=== PATIENT | female | born 1955 | race Caucasian/White ===

== ENCOUNTER 2016-06-29 19:07 | Inpatient (IN) | payer OTHER ==
--- NOTE | ~2016-06-29 | DS ---
Discharge Summary [address] [place]. [address] NAME: MICHAEL MUNOZ : 51 STATUS : DIS IN PAT#: [id number] AGE: 60 ADM/REG DATE : 06/29/16 MR#: [id number] REPORT SERV DATE: 07/03/16 DICTATED BY: RAFA PINK DATE: 07/02/16 REPORT STATUS : Draft TRANSCRIBED BY: MODL DATE: 07/02/16 ADMISSION DATE: 06/29/2016 DISCHARGE DATE: 07/02/2016 DISCHARGE DIAGNOSES: 1. Right-sided community-acquired pneumonia. 2. Hyponatremia, present on admission, improving. 3. Hypertension. 4. Hypovolemia, present on admission, improved. CONSULTANTS: Timothy Kenyon M.D., F.A.C.C. of Cardiology. PROCEDURES: None. HOSPITAL COURSE: This is a 60-year-old lady who was admitted to the hospital with right- sided community-acquired pneumonia as well as hyponatremia and hypovolemia. For details please refer to H and P by Dr. Oscar Joseph. In summary, the patient was admitted and was empirically treated with IV antibiotics. As the patient had developed the hyponatremia after recent medication changes namely hydrochlorothiazide by Dr. Kenyon's office, he was involved in the care. The patient's hyponatremia improved with IV fluids. The patient's hypovolemia also improved with IV fluids. Throughout the entire hospital stay, the patient remained afebrile and hemodynamically stable. The patient's white blood cell count was as high as 19.2 but improved to 10.6 on the day of discharge. Also notably throughout the entire hospital stay, the patient really never required any oxygen support to maintain adequate oxygen saturations. The patient's main complaint throughout the hospital stay was persistent cough which was treated symptomatically. The patient is now being discharged home with close outpatient followup instructions. DISPOSITION: Home. DISCHARGE MEDICATIONS: 1. Levaquin for another 5 days. 2. Phenergan with codeine as well as Broadbent for another week for symptomatic control of the cough. 3. Chlorthalidone was discontinued due to the hyponatremia. No new antihypertensive was added as the patient's blood pressure has been adequate here during the hospital stay. Further titration per primary care physician. FOLLOWUP INSTRUCTIONS: 1. Please follow up with PCP in the next one to two weeks. 2. Please follow up with Dr. Kenyon in the next two to three weeks. Discharge Summary [address] [place]. [address] NAME: MICHAEL MUNOZ : 51 STATUS : DIS IN PAT#: [id number] AGE: 60 ADM/REG DATE : 06/29/16 MR#: [id number] REPORT SERV DATE: 07/03/16 DICTATED BY: RAFA PINK DATE: 07/02/16 REPORT STATUS : Draft TRANSCRIBED BY: CARLOS DATE: 07/02/16 [facility]/CARLOS Rafa Pink MD / [id number] CC: MD Serge Mendez M.D.
--- NOTE | ~2016-06-29 | CN ---
Consultation Report [facility] [address] [place]. [address] NAME: MICHAEL MUNOZ : 51 STATUS : ADM IN [facility]#: [id number] AGE: 60 ADM/REG DATE : 06/29/16 MR#: [id number] REPORT SERV DATE: 07/01/16 DICTATED BY: TIMOTHY KENYON DATE: 06/30/16 REPORT STATUS : Draft TRANSCRIBED BY: MODL DATE: 06/30/16 CARDIOLOGY CONSULTATION DATE OF CONSULTATION: HISTORY OF PRESENT ILLNESS: The patient is a 60-year-old white female who had a cardiac catheterization done on 06/21/2016 that showed a patent stent in the mid LAD and no obstructive coronary disease. Left ventricular ejection fraction was 60%. The patient was placed on Edarbyclor because of poorly controlled blood pressure. She now presents with a complaint of generalized weakness and a nonproductive cough. She denies chest pain. She has been treated for pneumonia. PAST MEDICAL HISTORY: Remarkable for coronary artery disease with remote stenting of the LAD, hypertension, hyperlipidemia, and thyroid disease. She is status post multiple back surgeries by Dr. Boles. SOCIAL HISTORY: The patient does not smoke. FAMILY HISTORY: Positive for coronary disease. REVIEW OF SYSTEMS: The patient has a nonproductive cough. She is not having any nausea, vomiting, diarrhea, or dysuria. PHYSICAL EXAMINATION: VITAL SIGNS: Blood pressure is 92/49, heart rate is 78, respirations 18 and unlabored. ENT: Unremarkable. NECK: Shows no jugular venous distention with good carotid upstroke. CHEST: Remarkable for decreased breath sounds in the bases. CARDIOVASCULAR: The PMI is not displaced. S1 is normal. S2 is narrowly split. No gallop is present. ABDOMEN: Soft and nontender with normal bowel sounds. EXTREMITIES: Show no cyanosis, clubbing, or edema. SKIN: Warm and dry with no pallor or icterus. NEURO/PSYCH: The patient is oriented x3 with appropriate affect. IMPRESSION: 1. Patent stent in the left anterior descending artery and nonobstructive coronary artery disease on cardiac catheterization done on 06/21/2016. 2. Left ventricular angiogram on last cardiac catheterization showed an ejection fraction of 60%. 3. Hypotension probably secondary to dehydration and current antihypertensive medications. 4. Pneumonia. PLAN: Consultation Report [facility] [id number] [place]. [address] NAME: MICHAEL MUNOZ : 51 STATUS : ADM IN PAT#: [id number] AGE: 60 ADM/REG DATE : 06/29/16 MR#: [id number] REPORT SERV DATE: 07/01/16 DICTATED BY: TIMOTHY KENYON DATE: 06/30/16 REPORT STATUS : Draft TRANSCRIBED BY: MODL DATE: 06/30/16 1. Hold blood pressure medications for the time being and observe pressure. 2. Treat pneumonia. 3. We will follow. 4. We will rehydrate. Thank you very much for this consultation. DAVID/CARLOS Timothy Kenyon M.D., F.A.C.C. / [id number] CC: MD Serge Oneal M.D.
--- NOTE | ~2016-06-29 | HP ---
History And Physical [id number] [place]. [address] NAME: MICHAEL MUNOZ : 51 STATUS : ADM IN [facility]#: [id number] AGE: 60 ADM/REG DATE : 06/29/16 MR#: [id number] REPORT SERV DATE: 06/30/16 DICTATED BY: SUN BORGES DATE: 06/30/16 REPORT STATUS : Draft TRANSCRIBED BY: MODL DATE: 06/30/16 DATE OF ADMISSION: 06/29/2016 REASON FOR ADMISSION: Pneumonia, hyponatremia, and hypotension. HISTORY OF PRESENT ILLNESS: Ms. Munoz is 60-year-old female with history of hypertension who has had two to three month history of cough, worsened over the last two weeks productive of yellow phlegm. She has had negative x-rays and has been treated symptomatically with minimal relief. She had been on DEBBY inhibitor which was discontinued, and new blood pressure medicines were put in it's place. She actually saw ENT regarding this rhinorrhea continues but no further intervention was done. She has had diaphoresis, objective fevers, hoarseness, flank pain with her cough and some post tussive vomiting. She does have a history of strangling when she coughs while eating. Appetite has been poor, 10 pound weight loss is noted with occasional leg swelling. She has dizziness particularly if she turns to the left, loose stool. No neurological complaints other than generalized weakness. She denies any bleeding. REVIEW OF SYSTEMS: Remainder of review of systems are negative. PAST MEDICAL HISTORY: As mentioned above. She had a recent coronary catheterization, irritable bowel syndrome as noted. MEDICATION: Abilify, Edarbyclor, baclofen, Flexeril, BuSpar, vitamin D, Klonopin, vitamin B12, Benadryl, Aricept, estradiol, Lasix, Synthroid, multivitamin, Aleve, Bystolic, Prilosec, and Ditropan. ALLERGIES: TO PENICILLIN. FAMILY HISTORY: Positive for coronary artery disease. SOCIAL HISTORY: No tobacco, alcohol, or drugs. PHYSICAL EXAMINATION: VITAL SIGNS: On presentation, blood pressure 83/51, pulse 69, respirations rate 16, afebrile, saturating 96%. Repeat blood pressure 109/51. GENERAL: Awake, alert, and oriented x3. No apparent distress. HEENT: Pupils are equal and reactive to light. Extraocular movements are intact. No cranial nerve deficits. Dry mucous membranes. Normal oropharynx. NECK: Revealed no jugular venous distention, carotid bruits, lymphadenopathy, or goiter. CARDIAC: Bradycardic, regular rhythm. No murmurs, gallops, or rubs. LUNGS: Revealed rhonchi and rales in the right side only. ABDOMEN: Obese, nondistended, and nontender. Bowel sounds normoactive. EXTREMITIES: Reveal no cyanosis, clubbing, or edema. Has diminished pulses, diminished capillary refill. NEUROLOGIC: She had normal sensorimotor function in all four extremities. She had very cold History And Physical [address] [address] NAME: MICHAEL MUNOZ : 51 STATUS : ADM IN [facility]#: [id number] AGE: 60 ADM/REG DATE : 06/29/16 MR#: [id number] REPORT SERV DATE: 06/30/16 DICTATED BY: SUN BORGES DATE: 06/30/16 REPORT STATUS : Draft TRANSCRIBED BY: CARLOS DATE: 06/30/16 distal extremities. PSYCHIATRIC: She is appropriate. LABORATORY EVALUATION: Sodium 124, potassium 4.9, chloride 86, bicarb 31, BUN 28, creatinine 1.3, glucose 101, white count 19,000, H and H 11/33, platelets 493. Chest x-ray, reviewed by me was negative. CT of the chest, however, reviewed by me showed left-sided interstitial pneumonia with air bronchograms noted. EKG; normal sinus rhythm. No ST or T-wave changes. ASSESSMENT/PLAN: 1. Right-sided pneumonia likely atypical pathogen such as Mycoplasma, Legionella, or Pertussis. Antibiotic therapy was begun in the emergency department. We will continue that here. We will try to get cultures and the serological evaluation. Consider bronchoscopy if indicated. 2. Hyponatremia, likely diuretic effect. Differential diagnosis also includes SIADH as a cause of her hyponatremia. She is very hypovolemic. IV fluids will be given, however, we should be cautious for rapid rise of her sodium as the duration of the hyponatremia is unknown. Diuretics will be discontinued. 3. Hypertension. The patient is hypovolemic. No evidence of septic shock. Holding the blood pressure medications are imperative. PAUL/CARLOS Sun Borges M.D. / [id number] CC: MD Serge Oneal M.D. Steven Stubblefield, M.D., F.A.C.C.
[2016-06-29 18:19] LABS: A/G RATIO 0.8 (0.7-1.9); ALBUMIN 3.1 G/DL (3.5-5.0); ALKALINE PHOSPHATASE 112 U/L (45-117); BUN (BLOOD UREA NITROGEN) 28 MG/DL (6-23); CALCIUM, SERUM 8.7 MG/DL (8.5-10.4); CHLORIDE, SERUM 86 MMOL/L (96-112); CO2 (CARBON DIOXIDE) 31 MMOL/L (24-34); CREATININE 1.34 MG/DL (0.55-1.02); GFR AFRICAN AMERICAN 49 ML/MIN (>=60); GFR NON AFRICAN AMERICAN 42 ML/MIN (>=60); GLUCOSE, SERUM 101 MG/DL (60-99); POTASSIUM, SERUM 4.9 MMOL/L (3.5-5.3); SGOT(AST) 18 U/L (5-40); SGPT(ALT) 20 U/L (5-65); SODIUM, SERUM 124 MMOL/L (135-148); TOTAL BILIRUBIN 0.3 MG/DL (0-1.2); TOTAL PROTEIN 7.1 G/DL (6.0-8.5); TROPONIN I <0.02 NG/ML (<0.05)
[2016-06-29 18:20] LABS: LACTATE 1.3 MMOL/L (0.3-2.4)
[2016-06-29 18:29] LABS: PARTIAL THROMBO TIME 34.9 SEC (22.5-37.2); PROTIME (NOT ORD) 12.9 SEC (12.0-14.5)
[2016-06-29 18:31] LABS: D-DIMER QUANTITATIVE 1.14 ug/mLFEU (< 0.50)
[~2016-06-29 19:07] MED LIST: ABILIFY15 PO; ABILIFY30 MG PO; ALTA2.5 PO; ASA5GR PO; BEN25 PO; BENADRYL 50 MG50 MG PO; BUSPAR15 M1 PO; DITRO5 PO; DOLOPHINE10 MG PO; ESTRACE1 MG PO; ESTRATEST PO; KLONO1 PO; L40 PO; LEVOTHYROXIN75 MCG PO; LIOR10 PO; LOP25 PO; LORTAB10 PO; MERIBIN5 MG OR; METHATAB10 PO; MOBIC15 MG PO; MULTIPLE VIT PO; NEXIUM40 PO; NORCO1 TAB PO; OXYCOD PO; OXYCON20 PO; PR25 PO; VITAMIN B-121000 MC1 SL; VITAMIN D1000 UNI1 PO; VITAMIN D31000 UNIT PO; ZOMIG ZMT5 MG PO
[2016-06-29] MEDS ORDERED: DITRO5 PO ×2 (20:34)
[2016-06-29] MEDS ORDERED: SYN075 PO (20:34)
[2016-06-29] MEDS ORDERED: ABILIFY30 MG PO (20:34)
[2016-06-29] MEDS ORDERED: FLEX PO (20:35)
[2016-06-29] MEDS ORDERED: KLONO1 PO (20:35)
[2016-06-29] MEDS ORDERED: ESTRADIOL2 MG PO (20:35)
[2016-06-29] MEDS ORDERED: LIOR10 PO (20:35)
[2016-06-29 20:36] LABS: BASOPHILS 0.5 %; EOSINOPHILS 3.6 %; EOSINOPHILS ABSOLUTE 0.69 10/3/uL (0.0-0.53); ER CBC TAT 0 Hrs 03 Mins; HEMATOCRIT 32.8 % (36.0-48.0); IMMATURE GRANULOCYTES 1.7 %; IMMATURE GRANULOCYTES ABSOLUTE 0.32 10/3/uL (0.0-0.11); LYMPHOCYTES 22.9 %; MANUAL DIFF NO %; MEAN CORPUS HGB CONC 33.5 g/dL (32.0-36.0); MEAN CORPUSCULAR HEMOGLOB 27.4 pg (26.0-34.0); MEAN CORPUSCULAR VOLUME 81.6 fL (80-100); MEAN PLATELET VOLUME 9.7 fL (9.2-13.0); MONOCYTES 7.4 %; MONOCYTES ABSOLUTE 1.42 10/3/uL (0.21-1.20); NEUTROPHILS 63.9 %; NEUTROPHILS ABSOLUTE 12.31 10/3/uL (2.02-8.40); PLATELET COUNT 493 10/3/uL (150-400); RBC DISTRIBUTION WIDTH 14.2 % (12.0-16.0); RED CELL COUNT 4.02 10/6/uL (4.0-5.6); WHITE BLOOD CELLS 19.2 10/3/uL (4.5-10.5)
[2016-06-29] MEDS ORDERED: BUSPAR15 M1 PO (20:36)
[2016-06-29] MEDS ORDERED: BYSTOLIC20 MG PO (20:36)
[2016-06-29] MEDS ORDERED: L40 PO ×2 (20:36)
[2016-06-29] MEDS ORDERED: ARICEPT10 PO (20:37)
[2016-06-29] MEDS ORDERED: ZOMIG ZMT5 MG PO (20:37)
[2016-06-29] MEDS ORDERED: EDARBYCLOR 40-1 EAC1 PO (20:37)
[2016-06-29] MEDS ORDERED: PR25 PO (20:37)
[2016-06-29] MEDS ORDERED: PRILOSEC40 MG PO (20:38)
[2016-06-29] MEDS ORDERED: MULTIVIT/MIN PO (20:38)
[2016-06-29] MEDS ORDERED: VITAMIN D31000 UNIT PO (20:38)
[2016-06-29] MEDS ORDERED: ALEVE220 MG PO (20:38)
[2016-06-29] MEDS ORDERED: DEXTROMETHORPHAN PO (20:39)
[2016-06-29] MEDS ORDERED: BEN25 PO (20:39)
[2016-06-29] MEDS ORDERED: GUAIFENESIN PO (20:39)
[2016-06-29] MEDS ORDERED: BIOTIN10 MG PO (20:39)
[2016-06-29] MEDS ORDERED: CYANO1000T PO (20:39)
[2016-06-29] MEDS ORDERED: CHERATUSSIN PO (20:40)
[2016-06-29] MEDS ORDERED: HAIR,SKIN,NAILS VIT PO (20:40)
[2016-06-30 01:53] LABS: BASOPHILS 0.5 %; BASOPHILS ABSOLUTE 0.08 10/3/uL (0.0-0.16); EOSINOPHILS 3.9 %; EOSINOPHILS ABSOLUTE 0.69 10/3/uL (0.0-0.53); ER CBC TAT 0 Hrs 09 Mins; HEMOGLOBIN 9.5 g/dL (12.0-16.0); IMMATURE GRANULOCYTES 1.6 %; IMMATURE GRANULOCYTES ABSOLUTE 0.29 10/3/uL (0.0-0.11); LYMPHOCYTES ABSOLUTE 4.24 10/3/uL (0.67-4.30); MEAN CORPUS HGB CONC 33.1 g/dL (32.0-36.0); MEAN CORPUSCULAR HEMOGLOB 27.1 pg (26.0-34.0); MEAN CORPUSCULAR VOLUME 81.8 fL (80-100); MEAN PLATELET VOLUME 9.7 fL (9.2-13.0); MONOCYTES 8.7 %; MONOCYTES ABSOLUTE 1.54 10/3/uL (0.21-1.20); NEUTROPHILS 61.3 %; NEUTROPHILS ABSOLUTE 10.85 10/3/uL (2.02-8.40); PLATELET COUNT 505 10/3/uL (150-400); RBC DISTRIBUTION WIDTH 14.2 % (12.0-16.0); RED CELL COUNT 3.51 10/6/uL (4.0-5.6); WHITE BLOOD CELLS 17.7 10/3/uL (4.5-10.5)
[2016-06-30 01:58] LABS: HEMATOCRIT 28.7 % (36.0-48.0); MANUAL DIFF NO %
[2016-06-30 02:01] LABS: BUN (BLOOD UREA NITROGEN) 26 MG/DL (6-23); CHLORIDE, SERUM 89 MMOL/L (96-112); CO2 (CARBON DIOXIDE) 27 MMOL/L (24-34); CREATININE 1.07 MG/DL (0.55-1.02); GFR AFRICAN AMERICAN 64 ML/MIN (>=60); GFR NON AFRICAN AMERICAN 56 ML/MIN (>=60); GLUCOSE, SERUM 85 MG/DL (60-99); POTASSIUM, SERUM 4.6 MMOL/L (3.5-5.3); SODIUM, SERUM 126 MMOL/L (135-148)
[2016-06-30 02:02] LABS: CALCIUM, SERUM 7.6 MG/DL (8.5-10.4)
[2016-06-30 06:26] LABS: ASCORBIC ACID (UR NOT ORDER) NEG (NEG); BILIRUBIN, URINE NEGATIVE (NEG); KETONE, URINE NEGATIVE (NEG); LEUKOCYTE ESTERASE(NOT OR NEG (NEG); NITRITE (URINE) NEG (NEG); WBC (NOT ORDERED) (RFLEX) 1 (0-5)
[2016-06-30 06:34] LABS: SODIUM, URINE 31 MEQ/L
[2016-06-30 07:11] LABS: BASOPHILS 0.4 %; BASOPHILS ABSOLUTE 0.06 10/3/uL (0.0-0.16); EOSINOPHILS 4.1 %; EOSINOPHILS ABSOLUTE 0.62 10/3/uL (0.0-0.53); HEMATOCRIT 28.4 % (36.0-48.0); HEMOGLOBIN 9.4 g/dL (12.0-16.0); IMMATURE GRANULOCYTES 1.8 %; IMMATURE GRANULOCYTES ABSOLUTE 0.27 10/3/uL (0.0-0.11); LYMPHOCYTES 25.7 %; LYMPHOCYTES ABSOLUTE 3.87 10/3/uL (0.67-4.30); MEAN CORPUS HGB CONC 33.1 g/dL (32.0-36.0); MEAN CORPUSCULAR HEMOGLOB 27.1 pg (26.0-34.0); MEAN CORPUSCULAR VOLUME 81.8 fL (80-100); MEAN PLATELET VOLUME 9.4 fL (9.2-13.0); MONOCYTES 8.8 %; MONOCYTES ABSOLUTE 1.33 10/3/uL (0.21-1.20); NEUTROPHILS 59.2 %; NEUTROPHILS ABSOLUTE 8.91 10/3/uL (2.02-8.40); PLATELET COUNT 485 10/3/uL (150-400); RBC DISTRIBUTION WIDTH 14.2 % (12.0-16.0); RED CELL COUNT 3.47 10/6/uL (4.0-5.6); WHITE BLOOD CELLS 15.1 10/3/uL (4.5-10.5)
[2016-06-30 07:12] LABS: MANUAL DIFF NO %
[2016-06-30 07:23] LABS: BUN (BLOOD UREA NITROGEN) 23 MG/DL (6-23); CALCIUM, SERUM 7.7 MG/DL (8.5-10.4); CHLORIDE, SERUM 94 MMOL/L (96-112); CO2 (CARBON DIOXIDE) 28 MMOL/L (24-34); CREATININE 0.95 MG/DL (0.55-1.02); GFR AFRICAN AMERICAN 74 ML/MIN (>=60); GFR NON AFRICAN AMERICAN 64 ML/MIN (>=60); GLUCOSE, SERUM 128 MG/DL (60-99); POTASSIUM, SERUM 3.9 MMOL/L (3.5-5.3); SODIUM, SERUM 129 MMOL/L (135-148)
[2016-06-30 08:09] LABS: OSMOLALITY, URINE 275 MOSM/KG (50-1200)
[2016-07-01 05:53] LABS: BASOPHILS 0.5 %; BASOPHILS ABSOLUTE 0.06 10/3/uL (0.0-0.16); EOSINOPHILS 3.8 %; EOSINOPHILS ABSOLUTE 0.48 10/3/uL (0.0-0.53); HEMATOCRIT 28.1 % (36.0-48.0); HEMOGLOBIN 9.4 g/dL (12.0-16.0); IMMATURE GRANULOCYTES 2.7 %; IMMATURE GRANULOCYTES ABSOLUTE 0.35 10/3/uL (0.0-0.11); LYMPHOCYTES 28.7 %; LYMPHOCYTES ABSOLUTE 3.67 10/3/uL (0.67-4.30); MEAN CORPUS HGB CONC 33.5 g/dL (32.0-36.0); MEAN CORPUSCULAR VOLUME 80.7 fL (80-100); MEAN PLATELET VOLUME 9.4 fL (9.2-13.0); MONOCYTES 11.1 %; MONOCYTES ABSOLUTE 1.42 10/3/uL (0.21-1.20); NEUTROPHILS 53.2 %; NEUTROPHILS ABSOLUTE 6.81 10/3/uL (2.02-8.40); PLATELET COUNT 447 10/3/uL (150-400); RBC DISTRIBUTION WIDTH 14.2 % (12.0-16.0); RED CELL COUNT 3.48 10/6/uL (4.0-5.6); WHITE BLOOD CELLS 12.8 10/3/uL (4.5-10.5)
[2016-07-01 06:01] LABS: MANUAL DIFF NO %
[2016-07-01 06:10] LABS: CALCIUM, SERUM 8.4 MG/DL (8.5-10.4); CHLORIDE, SERUM 97 MMOL/L (96-112); CO2 (CARBON DIOXIDE) 25 MMOL/L (24-34); CREATININE 0.61 MG/DL (0.55-1.02); FREE T4 1.27 NG/DL (0.76-1.46); GFR AFRICAN AMERICAN 113 ML/MIN (>=60); GFR NON AFRICAN AMERICAN 97 ML/MIN (>=60); GLUCOSE, SERUM 103 MG/DL (60-99); POTASSIUM, SERUM 4.2 MMOL/L (3.5-5.3); SODIUM, SERUM 132 MMOL/L (135-148)
[2016-07-01 06:16] LABS: BUN (BLOOD UREA NITROGEN) 13 MG/DL (6-23)
[2016-07-02 05:01] LABS: BASOPHILS 0.9 %; EOSINOPHILS 5.1 %; EOSINOPHILS ABSOLUTE 0.54 10/3/uL (0.0-0.53); HEMATOCRIT 28.8 % (36.0-48.0); HEMOGLOBIN 9.6 g/dL (12.0-16.0); IMMATURE GRANULOCYTES ABSOLUTE 0.42 10/3/uL (0.0-0.11); LYMPHOCYTES 37.7 %; MEAN CORPUS HGB CONC 33.3 g/dL (32.0-36.0); MEAN CORPUSCULAR VOLUME 80.9 fL (80-100); MEAN PLATELET VOLUME 9.6 fL (9.2-13.0); MONOCYTES 12.3 %; NEUTROPHILS ABSOLUTE 4.24 10/3/uL (2.02-8.40); PLATELET COUNT 454 10/3/uL (150-400); RBC DISTRIBUTION WIDTH 14.1 % (12.0-16.0); RED CELL COUNT 3.56 10/6/uL (4.0-5.6); WHITE BLOOD CELLS 10.6 10/3/uL (4.5-10.5)
[2016-07-02 05:05] LABS: BUN (BLOOD UREA NITROGEN) 10 MG/DL (6-23); CALCIUM, SERUM 8.6 MG/DL (8.5-10.4); CHLORIDE, SERUM 100 MMOL/L (96-112); CO2 (CARBON DIOXIDE) 24 MMOL/L (24-34); CREATININE 0.59 MG/DL (0.55-1.02); GFR AFRICAN AMERICAN 114 ML/MIN (>=60); GFR NON AFRICAN AMERICAN 98 ML/MIN (>=60); GLUCOSE, SERUM 105 MG/DL (60-99); POTASSIUM, SERUM 4.4 MMOL/L (3.5-5.3); SODIUM, SERUM 132 MMOL/L (135-148)
[2016-07-02 05:06] LABS: MANUAL DIFF NO %
[2016-07-02] MEDS ORDERED: PHENERGAN W CODEINE PO (10:48)
[2016-07-02] MEDS ORDERED: LEVAQUIN750 MG PO (10:48)
[2016-07-02] MEDS ORDERED: NORCO1 TA1 PO (10:50)
[2016-08-29] MEDS ORDERED: SYN075 PO (16:03)
[2016-08-29] MEDS ORDERED: PRILOSEC40 MG PO (16:03)
[2016-08-29] MEDS ORDERED: ESTRADIOL2 MG PO (16:04)
[2016-08-29] MEDS ORDERED: FLEX PO (16:04)
[2016-08-29] MEDS ORDERED: BUSPAR15 M1 PO (16:04)
[2016-08-29] MEDS ORDERED: LIOR10 PO (16:04)
[2016-08-29] MEDS ORDERED: KLONO1 PO (16:05)
[2016-08-29] MEDS ORDERED: ABILIFY30 MG PO (16:05)
[2016-08-29] MEDS ORDERED: DITRO5 PO ×2 (16:05→16:08)
[2016-08-29] MEDS ORDERED: L40 PO (16:09)
[2016-08-29] MEDS ORDERED: ARICEPT10 PO (16:09)
[2016-08-29] MEDS ORDERED: PR25 PO (16:10)
[2016-08-29] MEDS ORDERED: BYSTOLIC20 MG PO (16:10)
[2016-08-29] MEDS ORDERED: ZOMIG 5MG PO (16:11)
[2016-08-29] MEDS ORDERED: VITAMIN D31000 UNIT PO (16:11)
[2016-08-29] MEDS ORDERED: VITAMIN B-121000 MC1 PO (16:12)
[2016-08-29] MEDS ORDERED: CENTRUM PO (16:12)
[2016-08-29] MEDS ORDERED: BIOTIN10 MG PO (16:13)
[2016-08-29] MEDS ORDERED: SKIN PO (16:13)
[2016-08-29] MEDS ORDERED: MUCINEX DM MAX PO (16:13)
[2016-08-29] MEDS ORDERED: HAIR PO (16:13)
[2016-08-29] MEDS ORDERED: VIT PO (16:13)
[2016-08-29] MEDS ORDERED: ALEVE220 MG PO (16:14)
[2016-08-29] MEDS ORDERED: LEVAQUIN5T PO (16:21)
[2016-09-05] MEDS ORDERED: NORV5 PO (11:58)
[2016-09-05] MEDS ORDERED: MCZ25 PO (12:03)
[2016-09-05] MEDS ORDERED: SUCR PO (12:13)
== END 2016-07-02 12:55 | disposition home or self-care (01) | DRG 194 ==
LOC: ER 19:07 → 7NO 22:02
PROVIDERS: Hospitalist; Internal Medicine; Specialist
DX: J18.9 Pneumonia, unspecified organism (principal); E87.1 Hypo-osmolality and hyponatremia; I10 Essential (primary) hypertension; I25.10 Atherosclerotic heart disease of native coronary artery without angina pectoris; Z79.899 Other long term (current) drug therapy; Z88.0 Allergy status to penicillin; Z95.5 Presence of coronary angioplasty implant and graft; Z82.49 Family history of ischemic heart disease and other diseases of the circulatory system
CPT/HCPCS: 71020; 71275; 80048; 80053; 81001; 83605; 83690; 83735; 83935; 84300; 84439; 84443; 84484; 85025; 85379; 85610; 85730; 86738; 87040; 87070; 87449; 87880; 92610-GN; 93005; 96374; 96375; 99285; A9270-GY; J1885; J1956; Q9967